=== PATIENT | female | born 1985 | race Caucasian/White ===

== ENCOUNTER 2018-08-01 01:20 | Observation (INO) | payer OTHER ==
[~2018-08-01] VITALS: Ht 154.9 cm; Wt 89.4 kg
[2018-08-01 01:43] VITALS: BP 114/59
[2018-08-01] MEDS ORDERED: RINGERS SOLUTION,LACTATED 1,000 ML IV SCH (02:15)
[2018-08-01] MEDS ORDERED: NIFEdipine 10 MG CAPSULE PO ONE (06:15)
[2018-08-01] MEDS ORDERED: BETAMETHASONE SOLUSPAN 6 MG/ML 5 ML VIAL IM ONE ×2 (06:15→19:15)
== END 2018-08-01 21:15 | disposition home or self-care (01) ==
LOC: 4S 01:20
PROVIDERS: ADMIT Obstetrics & Gynecology; ATTEND Obstetrics & Gynecology
DX: O26.853 Spotting complicating pregnancy, third trimester (principal); O62.9 Abnormality of forces of labor, unspecified; Z3A.33 33 weeks gestation of pregnancy
CPT/HCPCS: 36415; 76805; 81002; 86900; 86901; 96372; G0378; J0702; J7120

== ENCOUNTER 2018-08-14 15:55 | Inpatient (IN) | payer OTHER ==
[~2018-08-14] VITALS: Ht 160 cm; Wt 86.2 kg
[2018-08-14] MEDS ORDERED: IRON18TA PO (15:59)
[2018-08-14] MEDS ORDERED: PREN1TAB80 PO (15:59)
[2018-08-14 16:20] VITALS: BP 120/74
[2018-08-14] MEDS ORDERED: BETAMETHASONE SOLUSPAN 6 MG/ML 5 ML VIAL IM ONE (16:30)
[2018-08-14] MEDS: RINGERS SOLUTION,LACTATED 1,000 ML IV SCH (17:13)
[2018-08-14] MEDS ORDERED: NIFEdipine 10 MG CAPSULE PO SCH (17:15)
[2018-08-14 19:59] LABS: BASOPHILS % (AUTO) 0.4 % (0.0-2.0); EOSINOPHILS % (AUTO) 0.9 % (1.0-6.0); HEMATOCRIT 38.5 % (36-46); LYMPHOCYTES # (AUTO) 1.6 K/uL (1.0-4.8); LYMPHOCYTES % (AUTO) 14.1 % (22.0-44.0); MEAN CORPUSCULAR HEMOGLOBIN 30.2 pg (26.0-34.0); MEAN CORPUSCULAR HGB CONC 33.8 G/dL (31.0-37.0); MEAN CORPUSCULAR VOLUME 90 fL (80-100); MONOCYTES # (AUTO) 0.4 K/uL (0.1-1.0); MONOCYTES % (AUTO) 3.1 % (2.0-9.0); NEUTROPHILS # (AUTO) 9.2 K/uL (1.8-7.7); NEUTROPHILS % (AUTO) 81.5 % (40.0-70.0); PLATELET COUNT (AUTO)-OB 223 K/uL (150-450); RED CELL DISTRIBUTION WIDTH 14.3 % (11.5-14.5)
[2018-08-14] MEDS ORDERED: MAGNESIUM SULFATE 4 GM/WATER 100 ML IV ONE (20:00)
[2018-08-14] MEDS ORDERED: CALCIUM GLUCONATE 100 MG/ML 10 ML IVP PRN (20:00)
[2018-08-14] MEDS ORDERED: MAGNESIUM SULFATE 500 ML IV SCH (20:00)
[2018-08-15] MEDS ORDERED: BETAMETHASONE SOLUSPAN 6 MG/ML 5 ML VIAL IM ONE (05:00)
[2018-08-15] MEDS ORDERED: BUPIVACAINE HCL/DEX-WATER/PF 0.75% 2 ML AMP ONE (12:09)
[2018-08-15] MEDS ORDERED: CITRIC ACID/SODIUM CITRATE 30 ML SOLUTION UDCUP ONE (12:14)
[2018-08-15] MEDS ORDERED: METOCLOPRAMIDE HCL 5 MG/ML 2 ML VIAL IVP ONE (12:15)
[2018-08-15] MEDS ORDERED: CITRIC ACID/SODIUM CITRATE 30 ML SOLUTION UDCUP PO ONE (12:15)
[2018-08-15] MEDS: RINGERS SOLUTION,LACTATED 1,000 ML IV SCH ×3 (12:15→17:25)
[2018-08-15] MEDS ORDERED: METHYLERGONOVINE MALEATE 0.2 MG/ML VIAL ONE (12:40)
[2018-08-15] MEDS ORDERED: GUM MASTIC/STORAX/MSAL/ALCOHOL LIQUID 0.67 ML VIAL TP ONE (12:54)
[2018-08-15] MEDS ORDERED: OXYTOCIN 30 UNITS/LACT RINGERS 500 ML IV ONE (13:03)
[2018-08-15] MEDS ORDERED: NALOXONE HCL 0.4 MG/ML VIAL IVP PRN (13:15)
[2018-08-15] MEDS ORDERED: ONDANSETRON HCL 4 MG/2 ML VIAL IVP PRN (13:15)
[2018-08-15] MEDS ORDERED: OxyCODONE HCL/ACETAMINOPHEN 5-325 MG TABLET PO PRN ×3 (13:15)
[2018-08-15] MEDS ORDERED: DiphenhydrAMINE HCL 50 MG/ML VIAL IVP PRN (13:15)
[2018-08-15] MEDS ORDERED: LANOLIN 7 GM OINTMENT TP PRN (13:15)
[2018-08-15] MEDS ORDERED: METHYLERGONOVINE MALEATE 0.2 MG/ML VIAL IM ONE (15:45)
[2018-08-15] MEDS: KETOROLAC TROMETHAMINE 30 MG/ML VIAL IVP SCH (18:09)
[2018-08-15] MEDS ORDERED: OXYGEN THERAPY IH SCH ×2 (20:00)
[2018-08-15] MEDS: MAGNESIUM HYDROXIDE SUSPENSION 30 ML UDCUP PO SCH (20:08)
[2018-08-16] MEDS: KETOROLAC TROMETHAMINE 30 MG/ML VIAL IVP SCH ×2 (00:08→06:29)
[2018-08-16] MEDS: RINGERS SOLUTION,LACTATED 1,000 ML IV SCH (00:46)
[2018-08-16] MEDS ORDERED: DEXAMETHASONE SOD PHOS 4 MG/ML VIAL IVP ONE (05:46)
[2018-08-16] MEDS ORDERED: KETOROLAC TROMETHAMINE 60 MG/2 ML VIAL IM ONE (05:46)
[2018-08-16] MEDS ORDERED: ONDANSETRON HCL 4 MG/2 ML VIAL IVP ONE (05:46)
[2018-08-16] MEDS ORDERED: EPHEDrine SULFATE 50 MG/ML VIAL IM ONE (05:46)
[2018-08-16] MEDS ORDERED: LIDOCAINE/PF 2% 5 ML VIAL IM ONE (05:46)
[2018-08-16] MEDS ORDERED: METOCLOPRAMIDE HCL 5 MG/ML 2 ML VIAL IVP ONE (05:46)
[2018-08-16] MEDS ORDERED: OXYTOCIN 10 UNITS/ML VIAL IM ONE (05:46)
[2018-08-16] MEDS ORDERED: 0.9% SODIUM CHLORIDE 10 ML VIAL IVP ONE (05:46)
[2018-08-16 05:53] LABS: BASOPHILS % (AUTO) 0.1 % (0.0-2.0); EOSINOPHILS % (AUTO) 0.1 % (1.0-6.0); HEMATOCRIT 30.5 % (36-46); HEMOGLOBIN 10.2 g/dL (12.0-16.0); LYMPHOCYTES # (AUTO) 1.6 K/uL (1.0-4.8); LYMPHOCYTES % (AUTO) 11.5 % (22.0-44.0); MEAN CORPUSCULAR HEMOGLOBIN 30.1 pg (26.0-34.0); MEAN CORPUSCULAR HGB CONC 33.6 G/dL (31.0-37.0); MEAN CORPUSCULAR VOLUME 90 fL (80-100); MONOCYTES % (AUTO) 6.9 % (2.0-9.0); NEUTROPHILS # (AUTO) 11.5 K/uL (1.8-7.7); NEUTROPHILS % (AUTO) 81.4 % (40.0-70.0); PLATELET COUNT (AUTO)-OB 192 K/uL (150-450); RED CELL DISTRIBUTION WIDTH 14.2 % (11.5-14.5)
[2018-08-16] MEDS: MAGNESIUM HYDROXIDE SUSPENSION 30 ML UDCUP PO SCH (08:01)
[2018-08-16] MEDS: IBUPROFEN 800 MG TABLET PO PRN (18:41)
[2018-08-17] MEDS: IBUPROFEN 800 MG TABLET PO PRN (07:36)
[2018-08-17] MEDS: MAGNESIUM HYDROXIDE SUSPENSION 30 ML UDCUP PO SCH (09:04)
[2018-08-17] MEDS ORDERED: PERCT PO (09:34)
[2018-08-17] MEDS ORDERED: DSS100 PO (09:35)
[2018-08-17] MEDS ORDERED: IBUP-2071 PO (09:35)
[2018-08-17] MEDS ORDERED: FERR-89 PO (09:36)
[2018-08-17] MEDS ORDERED: MIDAZOLAM HCL 2 MG/2 ML VIAL IVP ONE (11:14)
[2018-08-17] MEDS ORDERED: MORPHINE SULFATE 4 MG/ML SYRINGE IVP ONE (11:14)
[2018-08-17] MEDS ORDERED: FentaNYL CITRATE-PF 100 MCG/2 ML VIAL IVP ONE (11:14)
== END 2018-08-17 11:15 | disposition home or self-care (01) | DRG 786 ==
LOC: OBSVTOIN 15:55 → 4S 15:55
PROVIDERS: ADMIT Obstetrics & Gynecology; ATTEND Obstetrics & Gynecology
PROC: 10D00Z1 Extraction of Products of Conception, Low, Open Approach (ICD-10-PCS; principal; 2018-08-15)
DX: O44.13 Complete placenta previa with hemorrhage, third trimester (principal); O60.12X0 Preterm labor second trimester with preterm delivery second trimester, not applicable or unspecified; O69.81X0 Labor and delivery complicated by cord around neck, without compression, not applicable or unspecified; Z3A.35 35 weeks gestation of pregnancy; Z37.0 Single live birth
CPT/HCPCS: 83735; 86850; 86900; 86901; 86920; 87081; J0690; J0702; J1100; J1885; J2210; J2250; J2270; J2405; J2590; J2765; J3010; J3475; J3490; J7120